=== PATIENT | female | born 1985 ===

== ENCOUNTER 2017-11-13 17:25 | Emergency (ER) | payer MEDICAID ==
--- NOTE | 2017-11-13 19:37 | RAD ---
INDICATION: Right foot injury. TECHNIQUE: 3 views of the right foot were obtained. FINDINGS: The bones are in normal alignment. No fracture is seen. Joint spaces appear maintained. IMPRESSION: NO EVIDENCE FOR FRACTURE, IF THE PATIENT'S SYMPTOMS PERSIST RECOMMEND FOLLOW-UP IMAGING.
[2017-11-13 20:23] VITALS: BP 124/84
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
== END 2017-11-13 20:21 | disposition home or self-care (01) ==
LOC: ED 17:25
DX: S90.31XA Contusion of right foot, initial encounter (principal); W51.XXXA Accidental striking against or bumped into by another person, initial encounter; Y92.9 Unspecified place or not applicable
CPT/HCPCS: 99282